=== PATIENT | male | born 1935 | race Caucasian/White ===

== ENCOUNTER 2017-06-23 17:47 | Emergency (ER) | payer MEDICARE, BC ==
[2017-06-23 18:45] LABS: APPEARANCE CLEAR (CLEAR); BILIRUBIN NEGATIVE (NEGATIVE); COLOR STRAW (YELLOW); GLUCOSE NEGATIVE (NEGATIVE); KETONE NEGATIVE (NEGATIVE); NITRITE NEGATIVE (NEGATIVE); PROTEIN NEGATIVE (NEGATIVE); SPECIFIC GRAVITY 1.005 (1.005-1.020); UROBILINOGEN NORMAL (NORMAL)
== END 2017-06-23 22:53 | disposition home or self-care (01) ==
LOC: D.ER 17:47
PROVIDERS: Emergency Medicine
DX: N32.89 Other specified disorders of bladder (principal)

== ENCOUNTER → 2017-06-29 08:47 | Outpatient (CLI) | payer MEDICARE, BC ==
[2017-06-29 09:15] LABS: BASOPHILS 0.3 % (0-2); EOSINOPHILS 0.8 % (0-7); HEMOGLOBIN 15.4 g/dL (13.5-17.5); IMMATURE GRANULOCYTES 0.1 % (0-5); LYMPHOCYTES 23.4 % (15-50); MCH 30.1 pg (26.0-34.0); MCV 85.9 fL (80.0-100.0); MONOCYTES 9.2 % (2-11); NEUTROPHILS 66.2 % (40-80); PLATELET COUNT 194 10x3/uL (130-400); RBC 5.12 10x6/uL (4.20-6.10); RDW 12.7 % (11.5-14.5); WBC 7.5 10x3/uL (4.8-10.8)
[2017-06-29 09:25] LABS: CALC OSMOLALITY 276 mosm/kg (275-300); CALCIUM 9.2 mg/dL (8.5-10.1); CARBON DIOXIDE 25.5 mmol/L (21.0-32.0); CHLORIDE - SERUM 104 mmol/L (98-107); CREATININE - SERUM 0.9 mg/dL (0.6-1.3); GLUCOSE 102 mg/dL (74-106); POTASSIUM - SERUM 3.8 mmol/L (3.5-5.1); SODIUM 138 mmol/L (136-145); UREA NITROGEN 15 mg/dL (7-18); eGFR NON AFRICAN AMERICAN 86 mL/min (90-120)
== END | disposition home or self-care (01) ==
LOC: D.LAB 08:47
PROVIDERS: Urology
DX: N19 Unspecified kidney failure (principal); R33.9 Retention of urine, unspecified

== ENCOUNTER → 2017-07-05 15:29 | Outpatient (CLI) | payer MEDICARE, BC ==
[~2017-07-05 15:29] MED LIST: ADVIL200 MG PO; ATIVAN0.5 MG PO; BACTRIM DS TABL1 TAB PO; BENADRYL25 MG PO; CARAFATE1 G PO; CIPRO500 MG PO; FLOMAX0.4 MG PO; FLORINEF 0.1 M0.1 MG PO; KLONOPIN0.5 MG PO; METAMUCIL FIB1 WAFER PO; POTASSIUM40 MEQ/15 PO; PROSCAR5 MG PO; PROTONIX40 MG PO
[2017-07-05 16:12] LABS: COLOR STRAW (YELLOW)
[2017-07-05 16:13] LABS: APPEARANCE CLEAR (CLEAR); BILIRUBIN NEGATIVE (NEGATIVE); GLUCOSE NEGATIVE (NEGATIVE); KETONE NEGATIVE (NEGATIVE); NITRITE NEGATIVE (NEGATIVE); PROTEIN NEGATIVE (NEGATIVE); SPECIFIC GRAVITY 1.005 (1.005-1.020); UROBILINOGEN NORMAL (NORMAL)
[2017-07-05 16:18] LABS: WHITE CELLS - URINE 0-5 /hpf (0-5)
[2017-08-28 13:56] VITALS: BMI 20.9
== END | disposition home or self-care (01) ==
LOC: D.LABREF 15:29
PROVIDERS: Family Medicine
DX: R33.9 Retention of urine, unspecified (principal)

== ENCOUNTER 2017-07-12 06:15 | Day surgery (SDC) | payer MEDICARE, BC ==
[2017-07-11 14:25] LABS: HEMATOCRIT 43.4 % (42.0-54.0); HEMOGLOBIN 15.3 g/dL (13.5-17.5); MCH 30.5 pg (26.0-34.0); MCHC 35.3 g/dL (31.0-37.0); MCV 86.5 fL (80.0-100.0); MEAN PLATELET VOLUME 10.2 fL (7.4-10.4); RBC 5.02 10x6/uL (4.20-6.10); RDW 12.9 % (11.5-14.5); WBC 9.6 10x3/uL (4.8-10.8)
[2017-07-11 14:39] LABS: APPEARANCE CLEAR (CLEAR); BACTERIA FEW /hpf (NONE SEEN); BILIRUBIN NEGATIVE (NEGATIVE); COLOR STRAW (YELLOW); EPITHELIAL CELLS RARE /hpf (0-5); GLUCOSE NEGATIVE (NEGATIVE); KETONE NEGATIVE (NEGATIVE); NITRITE NEGATIVE (NEGATIVE); PROTEIN NEGATIVE (NEGATIVE); SPECIFIC GRAVITY 1.005 (1.005-1.020); UROBILINOGEN NORMAL (NORMAL); WHITE CELLS - URINE 0-5 /hpf (0-5)
[~2017-07-12] VITALS: Ht 180.3 cm; Wt 71.2 kg
--- NOTE | ~2017-07-12 | OP ---
PATIENT NAME: ASAF AGUILAR MEDICAL RECORD: [id number] :37 LOCATION:D.OPS ADMISSION DATE: SURGEON: ANDREA TOUSSAINT MD DATE OF OPERATION: 07/12/2017 SURGEON: Andrea Toussaint MD ANESTHESIA: TIVA by Shailesh Talbert CRNA. PREOPERATIVE DIAGNOSES: Urinary retention. Elevated PSA of 4.72. PROCEDURE: Transrectal ultrasound and prostate biopsy. Fallon catheter exchange. SPECIMENS: Prostate biopsy cores. FINDINGS: An 18-gram prostate, which is broad and flat with intraprostatic stones. No hypoechoic areas. BLOOD LOSS: None. CLINICAL HISTORY: This is a 81-year-old male, who presented to the Emergency Room with urinary retention. He has been complaining of slow urinary flow since then. CT scan shows an enlarged prostate. PSA performed on 06/07/2017 was 4.72. There is no family history of prostate cancer. On rectal examination, he has a broad and flat prostate with no nodularity. In the clinical setting, I estimated his prostate to be enlarged at 60 grams. He comes today to have a prostate biopsy performed. If the biopsy shows no cancer, then we can treat him for BPH. Otherwise, we will have to treat him for prostate cancer. He is not allergic to any medication. He was given ampicillin-sulbactam 3 grams IV glass deposition tender to the OR. DESCRIPTION OF PROCEDURE: The patient was given IV sedation. He was placed in the dorsal lithotomy position. The transrectal ultrasound probe was placed in and we obtained prostate size measurements. The prostate is actually quite flat, although it is broad. The weight was estimated at only 18 grams. No hypoechoic areas were seen. The transition zone was clearly seen and within the junction between the transition zone and the pseudocapsule of the prostate, numerous prostatic stones could be seen. Sextant biopsies were then obtained. At least 3 cores were obtained from each sextant. Once the specimens were all obtained, we terminated the procedure. The patient will be going home today. I will see him in followup next week to review the pathology with him. Prior to performing the biopsy, we removed his indwelling Fallon catheter. At the end of the procedure, we placed a new 16-Kinyarwanda Fallon catheter to bag drainage. TRANSINT:[id number] Voice Confirmation ID: [id number] DOCUMENT ID: [id number] OPERATIVE REPORT [id number] ASAF AGUILAR, ANDREA Carbajal MD at 1016 CC: [id number] DICTATION DATE: 07/12/1735 CUSTOMER CARE SPECIALIST: 07/12/17 1006 [address] [place] [id number] [place] [id number]
[~2017-07-12 06:15] MED LIST changes: -ATIVAN0.5 MG PO; -BENADRYL25 MG PO; -CARAFATE1 G PO; -CIPRO500 MG PO; -FLOMAX0.4 MG PO; -FLORINEF 0.1 M0.1 MG PO; -KLONOPIN0.5 MG PO; -METAMUCIL FIB1 WAFER PO; -POTASSIUM40 MEQ/15 PO; -PROSCAR5 MG PO; -PROTONIX40 MG PO
[2017-07-12 07:59] VITALS: BP 128/67; Ht 180.3 cm; Wt 71.2 kg
== END 2017-07-12 10:40 | disposition home or self-care (01) ==
LOC: D.OPS 06:15 → D.PAN 10:15 → D.OPS 10:40
PROVIDERS: Anesthesiology; Urology
DX: R97.20 Elevated prostate specific antigen [PSA] (principal); N40.2 Nodular prostate without lower urinary tract symptoms; Z01.812 Encounter for preprocedural laboratory examination

== ENCOUNTER → 2017-07-24 07:43 | Outpatient (CLI) | payer MEDICARE, BC ==
[2017-07-12 07:59] VITALS: BMI 21.9
[~2017-07-24 07:43] MED LIST changes: +ATIVAN0.5 MG PO; +BENADRYL25 MG PO; +CARAFATE1 G PO; +CIPRO500 MG PO; +FLOMAX0.4 MG PO; +FLORINEF 0.1 M0.1 MG PO; +KLONOPIN0.5 MG PO; +METAMUCIL FIB1 WAFER PO; +POTASSIUM40 MEQ/15 PO; +PROSCAR5 MG PO; +PROTONIX40 MG PO
== END | disposition home or self-care (01) ==
LOC: D.NM 07:43
DX: C61 Malignant neoplasm of prostate (principal)

== ENCOUNTER 2017-08-22 23:15 | Inpatient (IN) | payer MEDICARE, BC ==
[~2017-08-22] VITALS: Ht 180.3 cm; Wt 68.4 kg
--- NOTE | ~2017-08-22 | HP ---
PATIENT: ASAF AGUILAR MEDICAL RECORD: [id number] ACCOUNT: [id number] LOCATION:[address] : 37 ADMISSION DATE: 08/23/17 HISTORY AND PHYSICAL EXAMINATION CHIEF COMPLAINT: Syncope as well as hemoptysis. HISTORY OF PRESENT ILLNESS: This patient is a 81-year-old gentleman who had recently relocated to [facility]. Apparently, over the last couple days, the patient has had increasing fatigue. He apparently had coughed up what appeared to be bloody. He had also had dark tarry stools. The patient had 1 episode of syncope. He presented to the Emergency Room where he was found to be profoundly anemic. PAST MEDICAL HISTORY: Significant in that he has had indwelling Fallon catheter placed for the last couple of months. He has had a history of having gastroesophageal reflux. PAST SURGICAL HISTORY: He has had an appendectomy. He had had upper GI scope with cauterization of bleeding ulcer in 1992. FAMILY HISTORY: Noncontributory. MEDICATIONS: Metamucil, Omeprazole 20 mg daily. He had been taking Advil p.r.n. pain. ALLERGIES: None. He has had a history of diverticulitis in the past. REVIEW OF SYSTEMS: GENERAL: He denies any headaches, seizure, or syncope. Denies change in visual or auditory acuity. PULMONARY: He does report having increasing shortness of breath. He has had cough. CARDIOVASCULAR: No chest pain, palpitation, PND, or orthopnea. GASTROINTESTINAL: No chronic nausea, vomiting, melena or hematochezia. GENITOURINARY: No urgency, frequency, or dysuria. PHYSICAL EXAMINATION: VITAL SIGNS: The patient was hypotensive in the Emergency Room. He was alert and oriented times 3. HEENT: Head is normocephalic. No lesions. Ears: TMs clear. Eyes: Pupils equal, round, reactive to light. Extraocular movements are intact. Nasal cavity, oral cavity, and oropharynx clear. NECK: Supple. There is no adenopathy. HEART: Had a regular rate. LUNGS: Clear. ABDOMEN: Soft, bowel sounds positive. The patient did have a guaiac positive stool. LABORATORY DATA: He had a white count of 13.9, his hemoglobin was 5.0, hematocrit 15.1, his platelets were 263, potassium 3.3, BUN 31, creatinine 0.1, glucose 145. Occult blood was positive. HISTORY AND PHYSICAL [id number] ASAF AGUILAR ASSESSMENT: Profound anemia secondary to upper gastrointestinal bleed, history of benign prostatic hyperplasia with indwelling catheter. PLAN: The patient will be admitted to ICU. He will be transfused 3 units of packed red blood cells. GI consultation will be obtained for EGD. We will continue to check his H&H on a q.6 hours basis and transfuse accordingly. TRANSINT:[id number] Voice Confirmation ID: [id number] DOCUMENT ID: [id number] VIRAL MCBRIDE MD at 0707 CC: [id number] DICTATION DATE: 08/23/17728 TELEMETRY RN: 08/23/17 0852 ADM IN [place] [id number] [place] [id number]
[~2017-08-22 23:15] MED LIST changes: -ATIVAN0.5 MG PO; -BENADRYL25 MG PO; -CARAFATE1 G PO; -CIPRO500 MG PO; -FLOMAX0.4 MG PO; -FLORINEF 0.1 M0.1 MG PO; -KLONOPIN0.5 MG PO; -METAMUCIL FIB1 WAFER PO; -POTASSIUM40 MEQ/15 PO; -PROSCAR5 MG PO; -PROTONIX40 MG PO
[2017-08-22 23:59] LABS: LYMPHOCYTES 6.2 % (15-50); MCH 29.2 pg (26.0-34.0); MCHC 33.1 g/dL (31.0-37.0); MCV 88.3 fL (80.0-100.0); MEAN PLATELET VOLUME 7.9 fL (7.4-10.4); NEUTROPHILS 87.5 % (40-80); PLATELET COUNT 263 10x3/uL (130-400); RDW 14.2 % (11.5-14.5); WBC 13.9 10x3/uL (4.8-10.8)
[2017-08-23] VITALS (24 sets, daily range): BP systolic 96–133; BP diastolic 51–74; Ht 180.3 cm; Wt 68.4 kg
[2017-08-23 00:03] LABS: APTT 31.7 SECONDS (22.8-39.4); INR 1.16 (0.85-1.17); PROTIME 14.4 SECONDS (11.6-15.0)
[2017-08-23 00:04] LABS: HEMATOCRIT 15.1 % (42.0-54.0); RBC 1.71 10x6/uL (4.20-6.10)
[2017-08-23 00:13] LABS: APPEARANCE HAZY (CLEAR); BACTERIA MANY /hpf (NONE SEEN); BILIRUBIN NEGATIVE (NEGATIVE); COLOR STRAW (YELLOW); EPITHELIAL CELLS 0-5 /hpf (0-5); GLUCOSE NEGATIVE (NEGATIVE); KETONE NEGATIVE (NEGATIVE); NITRITE POSITIVE (NEGATIVE); PROTEIN NEGATIVE (NEGATIVE); RED CELLS - URINE 0-5 /hpf (0-5); SPECIFIC GRAVITY 1.015 (1.005-1.020); UROBILINOGEN NORMAL (NORMAL)
[2017-08-23 00:24] LABS: ALBUMIN 2.2 g/dL (3.4-5.0); ALKALINE PHOSPHATASE 29 U/L (46-116); ALT (SGPT) 21 U/L (10-68); CALC OSMOLALITY 285 mosm/kg (275-300); CALCIUM 7.7 mg/dL (8.5-10.1); CARBON DIOXIDE 25.2 mmol/L (21.0-32.0); CHLORIDE - SERUM 104 mmol/L (98-107); CREATININE - SERUM 0.8 mg/dL (0.6-1.3); GLUCOSE 145 mg/dL (74-106); POTASSIUM - SERUM 3.3 mmol/L (3.5-5.1); PROTEIN - SERUM 4.9 g/dL (6.4-8.2); SODIUM 138 mmol/L (136-145); UREA NITROGEN 31 mg/dL (7-18); eGFR NON AFRICAN AMERICAN > 90 mL/min (90-120)
[2017-08-23] MEDS ORDERED: FLORINEF 0.1 M0.1 MG PO (04:02)
[2017-08-23] MEDS ORDERED: ADVIL200 MG PO (04:03)
[2017-08-23] MEDS ORDERED: PROSCAR5 MG PO (04:05)
[2017-08-23] MEDS ORDERED: FLOMAX0.4 MG PO (04:06)
[2017-08-23] MEDS ORDERED: ATIVAN0.5 MG PO (04:07)
[2017-08-23] MEDS ORDERED: METAMUCIL FIB1 WAFER PO (04:08)
[2017-08-23] MEDS ORDERED: BENADRYL25 MG PO (04:10)
[2017-08-23 09:06] LABS: HEMATOCRIT 26.6 % (42.0-54.0); HEMOGLOBIN 8.8 g/dL (13.5-17.5)
[2017-08-23 17:08] LABS: HEMATOCRIT 25.5 % (42.0-54.0); HEMOGLOBIN 8.6 g/dL (13.5-17.5)
[2017-08-23 20:25] LABS: HEMATOCRIT 28.6 % (42.0-54.0); HEMOGLOBIN 9.7 g/dL (13.5-17.5)
[2017-08-24] VITALS (24 sets, daily range): BP systolic 90–128; BP diastolic 44–68
[2017-08-24 04:54] LABS: BASOPHILS 0.2 % (0-2); EOSINOPHILS 1.1 % (0-7); HEMATOCRIT 30.5 % (42.0-54.0); HEMOGLOBIN 10.2 g/dL (13.5-17.5); IMMATURE GRANULOCYTES 0.3 % (0-5); MCH 29.8 pg (26.0-34.0); MCHC 33.4 g/dL (31.0-37.0); MCV 89.2 fL (80.0-100.0); MEAN PLATELET VOLUME 9.6 fL (7.4-10.4); MONOCYTES 6.4 % (2-11); RDW 14.4 % (11.5-14.5)
[2017-08-24 04:55] LABS: PLATELET COUNT 160 10x3/uL (130-400); RBC 3.42 10x6/uL (4.20-6.10); WBC 8.9 10x3/uL (4.8-10.8)
[2017-08-24 05:12] LABS: CALCIUM 7.5 mg/dL (8.5-10.1); CARBON DIOXIDE 24.9 mmol/L (21.0-32.0); CHLORIDE - SERUM 109 mmol/L (98-107); CREATININE - SERUM 0.8 mg/dL (0.6-1.3); POTASSIUM - SERUM 3.4 mmol/L (3.5-5.1); SODIUM 142 mmol/L (136-145); eGFR NON AFRICAN AMERICAN > 90 mL/min (90-120)
[2017-08-24 05:13] LABS: CALC OSMOLALITY 282 mosm/kg (275-300); GLUCOSE 91 mg/dL (74-106); UREA NITROGEN 13 mg/dL (7-18)
[2017-08-24 10:16] LABS: HEMATOCRIT 28.4 % (42.0-54.0); HEMOGLOBIN 9.4 g/dL (13.5-17.5)
[2017-08-24 19:03] LABS: HEMATOCRIT 31.1 % (42.0-54.0); HEMOGLOBIN 10.5 g/dL (13.5-17.5)
[2017-08-25] VITALS (17 sets, daily range): BP systolic 97–142; BP diastolic 45–72
[2017-08-25 05:44] LABS: BASOPHILS 0.1 % (0-2); HEMATOCRIT 29.4 % (42.0-54.0); HEMOGLOBIN 9.8 g/dL (13.5-17.5); IMMATURE GRANULOCYTES 0.4 % (0-5); LYMPHOCYTES 11.1 % (15-50); MCH 29.8 pg (26.0-34.0); MCHC 33.3 g/dL (31.0-37.0); MCV 89.4 fL (80.0-100.0); MEAN PLATELET VOLUME 9.4 fL (7.4-10.4); MONOCYTES 6.2 % (2-11); NEUTROPHILS 80.2 % (40-80); PLATELET COUNT 158 10x3/uL (130-400); RBC 3.29 10x6/uL (4.20-6.10); RDW 14.9 % (11.5-14.5)
[2017-08-25 06:04] LABS: CALC OSMOLALITY 280 mosm/kg (275-300); CALCIUM 7.4 mg/dL (8.5-10.1); CARBON DIOXIDE 25.9 mmol/L (21.0-32.0); CHLORIDE - SERUM 109 mmol/L (98-107); CREATININE - SERUM 0.7 mg/dL (0.6-1.3); GLUCOSE 85 mg/dL (74-106); POTASSIUM - SERUM 3.7 mmol/L (3.5-5.1); SODIUM 141 mmol/L (136-145); UREA NITROGEN 14 mg/dL (7-18); eGFR NON AFRICAN AMERICAN > 90 mL/min (90-120)
[2017-08-25 08:13] LABS: HEMATOCRIT 30.1 % (42.0-54.0); HEMOGLOBIN 10.2 g/dL (13.5-17.5)
[2017-08-26 01:00] VITALS: BP 132/62
[2017-08-26 05:01] LABS: BASOPHILS 0.1 % (0-2); EOSINOPHILS 1.4 % (0-7); HEMATOCRIT 33.7 % (42.0-54.0); HEMOGLOBIN 11.4 g/dL (13.5-17.5); IMMATURE GRANULOCYTES 0.4 % (0-5); LYMPHOCYTES 15.5 % (15-50); MCH 29.8 pg (26.0-34.0); MCHC 33.8 g/dL (31.0-37.0); MEAN PLATELET VOLUME 9.6 fL (7.4-10.4); MONOCYTES 5.3 % (2-11); NEUTROPHILS 77.3 % (40-80); PLATELET COUNT 195 10x3/uL (130-400); RBC 3.83 10x6/uL (4.20-6.10); RDW 14.8 % (11.5-14.5)
[2017-08-26 06:11] VITALS: BP 133/63
[2017-08-26 09:04] VITALS: BP 113/56
[2017-08-26 11:35] VITALS: BP 118/66
[2017-08-26 15:36] VITALS: BP 117/61
[2017-08-26 20:00] VITALS: BP 119/58
[2017-08-27 01:00] VITALS: BP 129/64
[2017-08-27 03:42] LABS: BASOPHILS 0.1 % (0-2); EOSINOPHILS 2.5 % (0-7); HEMATOCRIT 32.7 % (42.0-54.0); IMMATURE GRANULOCYTES 0.3 % (0-5); LYMPHOCYTES 13.9 % (15-50); MCH 30.1 pg (26.0-34.0); MCHC 33.6 g/dL (31.0-37.0); MCV 89.3 fL (80.0-100.0); MEAN PLATELET VOLUME 9.2 fL (7.4-10.4); MONOCYTES 7.5 % (2-11); NEUTROPHILS 75.7 % (40-80); PLATELET COUNT 189 10x3/uL (130-400); RBC 3.66 10x6/uL (4.20-6.10); RDW 14.7 % (11.5-14.5); WBC 7.1 10x3/uL (4.8-10.8)
[2017-08-27 04:00] LABS: ALKALINE PHOSPHATASE 32 U/L (46-116); ALT (SGPT) 14 U/L (10-68); CALC OSMOLALITY 277 mosm/kg (275-300); CALCIUM 7.7 mg/dL (8.5-10.1); CARBON DIOXIDE 28.3 mmol/L (21.0-32.0); CHLORIDE - SERUM 107 mmol/L (98-107); CREATININE - SERUM 0.8 mg/dL (0.6-1.3); GLUCOSE 102 mg/dL (74-106); POTASSIUM - SERUM 3.2 mmol/L (3.5-5.1); PROTEIN - SERUM 4.9 g/dL (6.4-8.2); SODIUM 140 mmol/L (136-145); eGFR NON AFRICAN AMERICAN > 90 mL/min (90-120)
[2017-08-27 04:01] LABS: UREA NITROGEN 9 mg/dL (7-18)
[2017-08-27 05:00] VITALS: BP 120/55
[2017-08-27] MEDS ORDERED: CIPRO500 MG PO (07:01)
[2017-08-27] MEDS ORDERED: PROTONIX40 MG PO (07:02)
[2017-08-27] MEDS ORDERED: POTASSIUM40 MEQ/15 PO (07:03)
[2017-08-27] MEDS ORDERED: CARAFATE1 G PO (08:00)
[2017-08-27 08:48] VITALS: BP 135/67
[2017-08-27 13:24] VITALS: BP 137/75
[2017-08-27 16:40] VITALS: BP 153/71
== END 2017-08-27 18:43 | DRG 811 ==
LOC: D.ER 23:15 → D.M2 08-23 00:48 → D.ICU 08-23 00:48 → D.EDHOLD 08-23 00:48 → D.ICU 08-23 01:22 → D.M2 08-25 17:57 → D.SDCHOLD 08-27 16:10 → D.M2 08-27 18:43
PROVIDERS: Emergency Medicine; Family Medicine; Internal Medicine Gastroenterology
PROC: 0W3P8ZZ Control Bleeding in Gastrointestinal Tract, Via Natural or Artificial Opening Endoscopic (ICD-10-PCS; 2017-08-23)
PROC: 0DB68ZX Excision of Stomach, Via Natural or Artificial Opening Endoscopic, Diagnostic (ICD-10-PCS; principal; 2017-08-23 17:00)
DX: D50.0 Iron deficiency anemia secondary to blood loss (chronic) (principal); K26.4 Chronic or unspecified duodenal ulcer with hemorrhage; N40.0 Benign prostatic hyperplasia without lower urinary tract symptoms; K21.9 Gastro-esophageal reflux disease without esophagitis

== ENCOUNTER 2017-08-27 19:02 | Inpatient (IN) | payer MEDICARE, BC ==
[~2017-08-27] VITALS: Ht 180.3 cm; Wt 68.0 kg
--- NOTE | ~2017-08-27 | RHP ---
PATIENT: ASAF AGUILAR MEDICAL RECORD: [id number] ACCOUNT: [id number] LOCATION:[address] : 37 ADMISSION DATE: 08/27/17 REHABILITATION HISTORY AND PHYSICAL EXAMINATION POST ADMISSION PHYSICIAN EXAMINATION DATE OF ADMISSION: 08/27/2017. ADMITTING DIAGNOSIS: Upper GI bleed. HISTORY OF PRESENT ILLNESS: The patient is a 81-year-old gentleman admitted for GI bleed and acute blood loss anemia. The patient admitted from the ER on 08/23/2017 who over the previous couple of days had increasing fatigue. He apparently coughed up what appeared to be blood. He also had dark tarry stools. He had 1 episode of syncope and fell at home. He lives at [facility], was able to call for help. When he arrived in the ER, he had increasing shortness of breath. He had a cough. He was hypotensive. He was alert and oriented times 3. His abdomen was soft. Positive bowel sounds. His H&H were noted to be 5 and 15. He was admitted to the ICU. He received 3 units of packed red blood cells. BP was stable. He still had some melanotic stools. GI consult was obtained. He had an EGD. He had a large penetrating ulcer about 1.2 cm with a visible vessel, had epinephrine injection and gold probe cauterization. He was placed on Protonix drip and on 08/25/2017 his H&H were stable. His BP was within normal limits. He was transferred out of the ICU to a medical bed, continued to improve with no further melanotic stool. He was previously moderately independent with rolling walker for ADLs and mobility. He currently is weak and fatigued. He ambulated 10 feet with PT, but can be easily fatigued. He is moderate to max assist for ADLs and mobility. He plans to return home back at his prior level of functioning. COMORBIDITIES: In this patient include acute blood loss anemia, gastric ulcer, anxiety, confusion, BPH, fatigue, weakness, syncope, recent falls, UTI, positive urine culture. PAST MEDICAL HISTORY: Significant for indwelling Fallon catheter. He has got a history of having reflux. PAST SURGICAL HISTORY: Includes appendectomy, an upper GI scope in the past. ALLERGIES: No known drug allergies. CURRENT MEDICATIONS: Include Flomax 0.4 mg daily, Protonix 40 mg daily, Floranex daily, Carafate 1 g q.a.c. and q.h.s. He is on potassium chloride powder times 1, Ativan 0.5 mg q.h.s. p.r.n., Proscar 5 mg q.h.s., Benadryl 25 mg q.4 hours p.r.n., Levaquin 500 mg q.24 hours, and polyethylene glycol 17 grams in 8 ounces of water daily. HABITS: No alcohol or tobacco use. FAMILY HISTORY: Noncontributory. SOCIAL HISTORY: The patient hopes to return back to [facility] and get back to his prior level of functioning. REVIEW OF SYSTEMS: HISTORY AND PHYSICAL [id number] ASAF AGUILAR GENERAL: He denies weakness at this time, but does complain of some fatigue. He also complains of anxiety. HEENT: Denies cold, cough, or congestion. CARDIOVASCULAR: Denies chest pain. LUNGS: Does not complain of any shortness of breath. PHYSICAL EXAMINATION: VITAL SIGNS: Stable, afebrile. GENERAL: An elderly gentleman in no acute distress, alert upon exam. HEENT: Normocephalic and atraumatic. Mucosa moist. NECK: Supple. No lymphadenopathy. LUNGS: Clear at this time. HEART: Regular rate and rhythm. ABDOMEN: Benign. EXTREMITIES: No clubbing, cyanosis or edema. NEUROLOGIC: He seems intact. He is a little bit anxious. LABORATORY DATA: His white count is 8.2, H&H of 11.5 and 35.3, and platelet count is 244. Sodium 142, potassium 4.0, BUN and creatinine 14 and 0.6, blood sugar is noted to be 88. ASSESSMENT: This is a 81-year-old gentleman admitted to the rehab with a working diagnosis of GI bleed, which caused debility. The patient has potential to make improvement. We instituted the following multidisciplinary therapies including, but not limited to physical, occupational, respiratory, speech, nutritional services, prosthetics and orthotics. Given his complex medical condition and risk for more complications, rehabilitation services cannot be provided at a low level of care such as a halfway facility. PLAN: 1. Admit to [facility] for intensive inpatient therapy to include the following disciplines: A. Physical therapy to improve gait, all transfer skills and bed mobility to a modified independent level. B. Occupational therapy to improve activities of daily living to a modified independent level. C. Case management to assist with discharge planning and placement options. D. Nutrition to assist with nutritional needs. E. Rehabilitation nursing to assist in monitoring the patient's underlying medical conditions and to assist with any type of bowel or bladder management. 2. The patient's current medication and medical care will be continued. 3. The patient will be placed on standard fall precautions. 4. The patient's estimated length of stay is approximately 7-10 days. 5. We will watch his H&H closely for any signs of bleeding. TRANSINT:[id number] Voice Confirmation ID: [id number] DOCUMENT ID: [id number] BELKYS notes whether there has been none or any medical/functional change since admission: - No chnage since prescreen. BELKYS attests patient continues to be appropriate for IRF: - Continues to be appropriate. HISTORY AND PHYSICAL [id number] ASAF AGUILAR SCOTT MD at 1355 CC: [id number] DICTATION DATE: 08/28/17813 WOOD HANDLER: 08/28/17 1055 ADM IN [facility] [address] [place] [id number]
[~2017-08-27 19:02] MED LIST changes: +ATIVAN0.5 MG PO; +BENADRYL25 MG PO; +CARAFATE1 G PO; +CIPRO500 MG PO; +FLOMAX0.4 MG PO; +FLORINEF 0.1 M0.1 MG PO; +METAMUCIL FIB1 WAFER PO; +POTASSIUM40 MEQ/15 PO; +PROSCAR5 MG PO; +PROTONIX40 MG PO
[2017-08-27 19:56] VITALS: BP 140/60
[2017-08-28 06:49] LABS: BASOPHILS 0.2 % (0-2); EOSINOPHILS 1.7 % (0-7); HEMATOCRIT 35.3 % (42.0-54.0); HEMOGLOBIN 11.5 g/dL (13.5-17.5); IMMATURE GRANULOCYTES 0.4 % (0-5); LYMPHOCYTES 14.5 % (15-50); MCH 29.4 pg (26.0-34.0); MCHC 32.6 g/dL (31.0-37.0); MCV 90.3 fL (80.0-100.0); MEAN PLATELET VOLUME 9.4 fL (7.4-10.4); MONOCYTES 5.5 % (2-11); NEUTROPHILS 77.7 % (40-80); RBC 3.91 10x6/uL (4.20-6.10); RDW 14.3 % (11.5-14.5); WBC 8.2 10x3/uL (4.8-10.8)
[2017-08-28 06:50] LABS: CALC OSMOLALITY 282 mosm/kg (275-300); CALCIUM 8.1 mg/dL (8.5-10.1); CARBON DIOXIDE 26.8 mmol/L (21.0-32.0); CHLORIDE - SERUM 106 mmol/L (98-107); CREATININE - SERUM 0.6 mg/dL (0.6-1.3); GLUCOSE 88 mg/dL (74-106); SODIUM 142 mmol/L (136-145); UREA NITROGEN 14 mg/dL (7-18); eGFR NON AFRICAN AMERICAN > 90 mL/min (90-120)
[2017-08-28 06:55] LABS: PLATELET COUNT 244 10x3/uL (130-400)
[2017-08-28 08:00] VITALS: BP 138/64
[2017-08-28 13:56] VITALS: Ht 180.3 cm; Wt 68.0 kg
[2017-08-28 19:48] VITALS: BP 106/55
[2017-08-29 06:47] LABS: BASOPHILS 0.2 % (0-2); EOSINOPHILS 2.6 % (0-7); HEMOGLOBIN 11.1 g/dL (13.5-17.5); IMMATURE GRANULOCYTES 0.3 % (0-5); LYMPHOCYTES 20.3 % (15-50); MCH 29.5 pg (26.0-34.0); MCHC 32.6 g/dL (31.0-37.0); MCV 90.4 fL (80.0-100.0); MEAN PLATELET VOLUME 9.6 fL (7.4-10.4); MONOCYTES 6.4 % (2-11); NEUTROPHILS 70.2 % (40-80); PLATELET COUNT 254 10x3/uL (130-400); RBC 3.76 10x6/uL (4.20-6.10); RDW 14.3 % (11.5-14.5); WBC 6.2 10x3/uL (4.8-10.8)
[2017-08-29 08:00] VITALS: BP 116/68
[2017-08-29 08:09] LABS: CALC OSMOLALITY 283 mosm/kg (275-300); CARBON DIOXIDE 30.9 mmol/L (21.0-32.0); CHLORIDE - SERUM 107 mmol/L (98-107); CREATININE - SERUM 0.8 mg/dL (0.6-1.3); GLUCOSE 94 mg/dL (74-106); POTASSIUM - SERUM 3.8 mmol/L (3.5-5.1); SODIUM 143 mmol/L (136-145); UREA NITROGEN 11 mg/dL (7-18); eGFR NON AFRICAN AMERICAN > 90 mL/min (90-120)
[2017-08-29 20:06] VITALS: BP 128/57
[2017-08-30 08:00] VITALS: BP 109/56
[2017-08-30 20:05] VITALS: BP 123/64
[2017-08-31 06:36] LABS: BASOPHILS 0.4 % (0-2); EOSINOPHILS 2.2 % (0-7); HEMATOCRIT 34.9 % (42.0-54.0); HEMOGLOBIN 11.4 g/dL (13.5-17.5); IMMATURE GRANULOCYTES 0.2 % (0-5); LYMPHOCYTES 22.3 % (15-50); MCH 29.5 pg (26.0-34.0); MCHC 32.7 g/dL (31.0-37.0); MCV 90.2 fL (80.0-100.0); MEAN PLATELET VOLUME 9.4 fL (7.4-10.4); NEUTROPHILS 65.9 % (40-80); PLATELET COUNT 292 10x3/uL (130-400); RBC 3.87 10x6/uL (4.20-6.10); WBC 5.4 10x3/uL (4.8-10.8)
[2017-08-31 07:05] LABS: CALC OSMOLALITY 280 mosm/kg (275-300); CALCIUM 8.1 mg/dL (8.5-10.1); CARBON DIOXIDE 27.3 mmol/L (21.0-32.0); CHLORIDE - SERUM 105 mmol/L (98-107); CREATININE - SERUM 0.7 mg/dL (0.6-1.3); GLUCOSE 92 mg/dL (74-106); POTASSIUM - SERUM 3.8 mmol/L (3.5-5.1); SODIUM 141 mmol/L (136-145); UREA NITROGEN 12 mg/dL (7-18); eGFR NON AFRICAN AMERICAN > 90 mL/min (90-120)
[2017-08-31 08:00] VITALS: BP 116/61
[2017-08-31 19:00] VITALS: BP 121/57
[2017-09-01 09:27] VITALS: BP 122/55
[2017-09-01 20:24] VITALS: BP 113/46
[2017-09-02 08:56] VITALS: BP 121/55
[2017-09-02 19:43] VITALS: BP 142/58
[2017-09-03 06:01] LABS: BASOPHILS 0.4 % (0-2); EOSINOPHILS 2.3 % (0-7); HEMATOCRIT 35.5 % (42.0-54.0); HEMOGLOBIN 11.5 g/dL (13.5-17.5); IMMATURE GRANULOCYTES 0.2 % (0-5); LYMPHOCYTES 17.5 % (15-50); MCH 29.4 pg (26.0-34.0); MCHC 32.4 g/dL (31.0-37.0); MCV 90.8 fL (80.0-100.0); MEAN PLATELET VOLUME 9.5 fL (7.4-10.4); MONOCYTES 10.5 % (2-11); NEUTROPHILS 69.1 % (40-80); PLATELET COUNT 329 10x3/uL (130-400); RBC 3.91 10x6/uL (4.20-6.10); RDW 13.8 % (11.5-14.5); WBC 5.7 10x3/uL (4.8-10.8)
[2017-09-03 06:10] LABS: CALC OSMOLALITY 283 mosm/kg (275-300); CALCIUM 8.4 mg/dL (8.5-10.1); CARBON DIOXIDE 29.5 mmol/L (21.0-32.0); CHLORIDE - SERUM 105 mmol/L (98-107); CREATININE - SERUM 0.7 mg/dL (0.6-1.3); GLUCOSE 91 mg/dL (74-106); POTASSIUM - SERUM 3.3 mmol/L (3.5-5.1); SODIUM 143 mmol/L (136-145); UREA NITROGEN 9 mg/dL (7-18); eGFR NON AFRICAN AMERICAN > 90 mL/min (90-120)
[2017-09-03 08:00] VITALS: BP 120/59
[2017-09-03 20:51] VITALS: BP 136/72
[2017-09-04 07:59] VITALS: BP 122/57
[2017-09-04 19:23] VITALS: BP 137/71
[2017-09-05 08:00] LABS: BASOPHILS 0.5 % (0-2); EOSINOPHILS 1.4 % (0-7); HEMATOCRIT 35.8 % (42.0-54.0); HEMOGLOBIN 11.5 g/dL (13.5-17.5); IMMATURE GRANULOCYTES 0.2 % (0-5); LYMPHOCYTES 15.3 % (15-50); MCH 28.9 pg (26.0-34.0); MCHC 32.1 g/dL (31.0-37.0); MCV 89.9 fL (80.0-100.0); MEAN PLATELET VOLUME 9.4 fL (7.4-10.4); MONOCYTES 8.7 % (2-11); NEUTROPHILS 73.9 % (40-80); PLATELET COUNT 302 10x3/uL (130-400); RBC 3.98 10x6/uL (4.20-6.10); RDW 13.5 % (11.5-14.5); WBC 5.8 10x3/uL (4.8-10.8)
[2017-09-05 08:16] LABS: CALC OSMOLALITY 277 mosm/kg (275-300); CALCIUM 8.9 mg/dL (8.5-10.1); CHLORIDE - SERUM 104 mmol/L (98-107); CREATININE - SERUM 0.7 mg/dL (0.6-1.3); GLUCOSE 99 mg/dL (74-106); POTASSIUM - SERUM 3.1 mmol/L (3.5-5.1); SODIUM 140 mmol/L (136-145); UREA NITROGEN 11 mg/dL (7-18); eGFR NON AFRICAN AMERICAN > 90 mL/min (90-120)
[2017-09-05 08:28] VITALS: BP 108/57
[2017-09-05 20:05] VITALS: BP 126/71
[2017-09-06 08:00] VITALS: BP 117/71
[2017-09-06 20:00] VITALS: BP 136/62
[2017-09-07 08:23] VITALS: BP 143/57
[2017-09-07 20:49] VITALS: BP 113/49
[2017-09-08 08:00] VITALS: BP 130/69
[2017-09-08 19:45] VITALS: BP 115/54
[2017-09-09 08:02] VITALS: BP 138/67
[2017-09-09 20:24] VITALS: BP 134/66
[2017-09-10 06:09] LABS: BASOPHILS 0.3 % (0-2); EOSINOPHILS 2.4 % (0-7); HEMATOCRIT 39.9 % (42.0-54.0); HEMOGLOBIN 13.2 g/dL (13.5-17.5); IMMATURE GRANULOCYTES 0.2 % (0-5); LYMPHOCYTES 26.2 % (15-50); MCH 29.3 pg (26.0-34.0); MCHC 33.1 g/dL (31.0-37.0); MCV 88.5 fL (80.0-100.0); MEAN PLATELET VOLUME 9.4 fL (7.4-10.4); MONOCYTES 10.8 % (2-11); NEUTROPHILS 60.1 % (40-80); PLATELET COUNT 306 10x3/uL (130-400); RBC 4.51 10x6/uL (4.20-6.10); RDW 13.4 % (11.5-14.5); WBC 5.7 10x3/uL (4.8-10.8)
[2017-09-10 06:47] LABS: CALC OSMOLALITY 281 mosm/kg (275-300); CALCIUM 9.3 mg/dL (8.5-10.1); CARBON DIOXIDE 27.1 mmol/L (21.0-32.0); CHLORIDE - SERUM 104 mmol/L (98-107); CREATININE - SERUM 0.7 mg/dL (0.6-1.3); GLUCOSE 100 mg/dL (74-106); POTASSIUM - SERUM 3.6 mmol/L (3.5-5.1); SODIUM 142 mmol/L (136-145); UREA NITROGEN 10 mg/dL (7-18); eGFR NON AFRICAN AMERICAN > 90 mL/min (90-120)
[2017-09-10 08:14] VITALS: BP 121/62
[2017-09-10 21:08] VITALS: BP 111/62
[2017-09-11 08:00] VITALS: BP 121/88
[2017-09-11] MEDS ORDERED: KLONOPIN0.5 MG PO (11:25)
== END 2017-09-11 14:55 | disposition home health service (06) | DRG 384 ==
LOC: D.REHAB 19:02
PROVIDERS: Emergency Medicine
DX: K25.9 Gastric ulcer, unspecified as acute or chronic, without hemorrhage or perforation (principal); D62 Acute posthemorrhagic anemia; N39.0 Urinary tract infection, site not specified; R53.81 Other malaise; Z66 Do not resuscitate; N40.0 Benign prostatic hyperplasia without lower urinary tract symptoms; R41.0 Disorientation, unspecified; F41.9 Anxiety disorder, unspecified; R53.83 Other fatigue; R53.1 Weakness; R55 Syncope and collapse; Z91.81 History of falling

== ENCOUNTER 2017-10-01 10:37 | Emergency (ER) | payer MEDICARE, BC ==
[2017-08-28 13:56] VITALS: BMI 20.9
[~2017-10-01 10:37] MED LIST changes: +KLONOPIN0.5 MG PO
[2017-10-01 11:45] LABS: APPEARANCE SLT CLOUDY (CLEAR); BILIRUBIN NEGATIVE (NEGATIVE); COLOR PINK (YELLOW); GLUCOSE NEGATIVE (NEGATIVE); KETONE NEGATIVE (NEGATIVE); NITRITE NEGATIVE (NEGATIVE); PROTEIN TRACE mg/dL (NEGATIVE); RED CELLS - URINE >50 /hpf (0-5); SPECIFIC GRAVITY 1.005 (1.005-1.020); UROBILINOGEN NORMAL (NORMAL)
[2017-10-01 11:46] LABS: BACTERIA MODERATE /hpf (NONE SEEN); EPITHELIAL CELLS 0-5 /hpf (0-5)
== END 2017-10-01 12:26 | disposition home or self-care (01) ==
LOC: D.ER 10:37
PROVIDERS: Emergency Medicine
DX: N39.0 Urinary tract infection, site not specified (principal); T83.83XA Hemorrhage due to genitourinary prosthetic devices, implants and grafts, initial encounter; N36.8 Other specified disorders of urethra; Z85.46 Personal history of malignant neoplasm of prostate; F03.90 Unspecified dementia, unspecified severity, without behavioral disturbance, psychotic disturbance, mood disturbance, and anxiety

== ENCOUNTER 2017-11-26 14:47 | Emergency (ER) | payer MEDICARE, BC ==
[~2017-11-26] VITALS: Ht 180.3 cm; Wt 65.8 kg
[2017-11-26 15:08] VITALS: Ht 180.3 cm; Wt 65.8 kg
[2017-11-26 17:29] LABS: APPEARANCE CLEAR (CLEAR); BILIRUBIN NEGATIVE (NEGATIVE); COLOR YELLOW (YELLOW); GLUCOSE NEGATIVE (NEGATIVE); KETONE NEGATIVE (NEGATIVE); NITRITE POSITIVE (NEGATIVE); PROTEIN TRACE mg/dL (NEGATIVE); UROBILINOGEN NORMAL (NORMAL)
[2017-11-26 17:30] LABS: BACTERIA MANY /hpf (NONE SEEN); RED CELLS - URINE 25-50 /hpf (0-5); WHITE CELLS - URINE 0-5 /hpf (0-5)
[2017-11-26 17:34] VITALS: BP 113/63
== END 2017-11-26 17:41 | disposition home or self-care (01) ==
LOC: D.ER 14:47
PROVIDERS: Family Medicine
DX: R33.9 Retention of urine, unspecified (principal); C61 Malignant neoplasm of prostate